=== PATIENT | male | born 1985 | race African-American/Black ===

== ENCOUNTER 2022-02-05 12:17 | Emergency (ER) | payer MEDICAID, OTHER ==
[~2022-02-05] VITALS: Ht 172.7 cm; Wt 82.0 kg
[2022-02-05 12:21] VITALS: BP 138/89
[2022-02-05] MEDS: ACETAMINOPHEN 650MG/20.3ML UDC PO ONE ×3 (12:59→13:12)
[2022-02-05] MEDS ORDERED: ACETAMINOPHEN 325MG TABLET PO ONE (13:15)
[2022-02-05] MEDS ORDERED: NAPR-1176 MT (14:07)
== END 2022-02-05 15:44 | disposition home or self-care (01) ==
LOC: ER 13:00
DX: S09.90XA Unspecified injury of head, initial encounter (principal); S69.82XA Other specified injuries of left wrist, hand and finger(s), initial encounter; Y08.89XA Assault by other specified means, initial encounter; Y93.89 Activity, other specified; Y92.89 Other specified places as the place of occurrence of the external cause; Y99.8 Other external cause status; F12.10 Cannabis abuse, uncomplicated
CPT/HCPCS: 73130; 99284

== ENCOUNTER 2022-02-24 12:19 | Emergency (ER) | payer MEDICAID, OTHER ==
[~2022-02-24] VITALS: Ht 180.3 cm; Wt 96.0 kg
[~2022-02-24 12:19] MED LIST: NAPR-1176 MT
[2022-02-24 12:28] VITALS: BP 157/85
== END 2022-02-24 16:25 | disposition left against medical advice (07) ==
LOC: ER 12:19
DX: Z53.21 Procedure and treatment not carried out due to patient leaving prior to being seen by health care provider (principal)

== ENCOUNTER 2022-03-02 11:26 | Emergency (ER) | payer MEDICAID ==
[~2022-03-02] VITALS: Ht 167.6 cm; Wt 89.0 kg
[2022-03-02] MEDS ORDERED: IBUPROFEN 600MG TABLET PO ONE (12:30)
[2022-03-02 12:47] VITALS: BP 145/104
[2022-03-02] MEDS ORDERED: IBUP-2029 MT (13:22)
== END 2022-03-02 13:29 | disposition home or self-care (01) ==
LOC: ER 11:26
DX: S06.9X9A Unspecified intracranial injury with loss of consciousness of unspecified duration, initial encounter (principal); X58.XXXA Exposure to other specified factors, initial encounter; Y93.9 Activity, unspecified; Y92.89 Other specified places as the place of occurrence of the external cause; Y99.8 Other external cause status
CPT/HCPCS: 99282